=== PATIENT | female | born 1985 | race African-American/Black ===

== ENCOUNTER 2017-12-08 20:05 | Emergency (ER) | payer OTHER, SELFPAY | END 2017-12-08 20:57 | disposition home or self-care (01) | LOC: ERS 20:05 | DX: L72.3 Sebaceous cyst (principal) | CPT/HCPCS: 99282 ==

== ENCOUNTER 2018-02-18 22:07 | Emergency (ER) | payer OTHER ==
[2018-02-18] MEDS ORDERED: Famotidine 20 MG TAB ONE (23:00)
[2018-02-18] MEDS ORDERED: methylPREDNISolone Sod Succ/PF 125 MG/2 ML VIAL ONE ×2 (23:00→23:03)
== END 2018-02-18 23:23 | disposition home or self-care (01) ==
LOC: ERS 22:07
DX: L50.0 Allergic urticaria (principal)
CPT/HCPCS: 96372; J2930

== ENCOUNTER 2020-01-22 19:12 | Emergency (ER) | payer OTHER, SELFPAY | END 2020-01-22 19:32 | disposition home or self-care (01) | LOC: ERS 19:12 | DX: L72.3 Sebaceous cyst (principal) | CPT/HCPCS: 99282 ==

== ENCOUNTER 2020-02-21 13:19 | Emergency (ER) | payer OTHER, SELFPAY ==
[2020-02-21] MEDS ORDERED: Acetaminophen 500 MG TAB ONE (13:40)
[2020-02-22 10:59] LABS: SARS-CoV-2 MS2 Positive; SARS-CoV-2 N Gene Positive; SARS-CoV-2 S Gene Positive; SARS-CoV-2 orf1ab Positive
== END 2020-02-21 14:34 | disposition home or self-care (01) ==
LOC: ERS 13:19
DX: U07.1 COVID-19 (principal); R05 Cough
CPT/HCPCS: 87635; 87804; 99283; U0003

== ENCOUNTER 2020-02-22 14:14 | Emergency (ER) | payer OTHER, SELFPAY | END 2020-02-22 14:56 | disposition home or self-care (01) | LOC: ERS 14:14 | DX: U07.1 COVID-19 (principal); M79.10 Myalgia, unspecified site; R51 Headache | CPT/HCPCS: 99283 ==